=== PATIENT | female | born 1980 | race Caucasian/White ===

== ENCOUNTER 2017-09-11 18:45 | Observation (INO) | payer SELFPAY ==
[~2017-09-11] VITALS: Ht 162.6 cm; Wt 84.8 kg
[~2017-09-11 18:45] MED LIST: CEPH250C16 PO; IBUP-974 PO; PREN-385 PO
[2017-09-11 20:00] VITALS: BP 100/56
== END 2017-09-11 21:40 | disposition home or self-care (01) ==
LOC: MLD 18:45
PROVIDERS: ADMIT Obstetrics & Gynecology; ATTEND Obstetrics & Gynecology
DX: O26.892 Other specified pregnancy related conditions, second trimester (principal); R10.9 Unspecified abdominal pain; Z3A.23 23 weeks gestation of pregnancy
CPT/HCPCS: 76805; 81000; G0378; Q0092

== ENCOUNTER 2017-09-11 22:34 | Emergency (ER) | payer SELFPAY ==
[~2017-09-11] VITALS: Ht 152.4 cm; Wt 83.0 kg
[2017-09-11 22:41] VITALS: BP 105/70
--- NOTE | 2017-09-11 22:46 | NUR ---
TO LOBBY, A/W STEFFANIE DUARTE ERMD NOTED
--- NOTE | 2017-09-12 01:00 | NUR ---
PT TAKEN TO BED 12
--- NOTE | 2017-09-12 01:11 | NUR ---
37Y F BIB FAMILY C/O BOTH LEGS PAIN, SINCE MONDAY, NO TRAUMA NOR INJURY , EVALUATED FROM L AND D, FHR 150 25 WEEKS, LMP MARCH. PT DENIES ANY N/V/D, SOB, CP. PT STATES LEG PAIN PREVENTS HER FROM SLEEPING THUS SHE CANNOT WORK. PT BREATHING IS UNLABORED AND EVEN. PT AAOX4.
[2017-09-12 01:31] VITALS: BP 114/76
--- NOTE | 2017-09-12 01:31 | NUR ---
Patient discharged with v/s stable BY ER MD DR PEGUERO. Written and verbal after care instructions given and explained BY DR PEGUERO. Patient alert, oriented and verbalized understanding of instructions. Ambulatory with steady gait. All questions addressed prior to discharge BY DR PEGUERO. ID band removed. Patient advised to follow up with PMD. Rx of NAPROSYN 500MG given. Patient educated on indication of medication including possible reaction and side effects. Opportunity to ask questions provided and answered BY DR PEGUERO
== END 2017-09-12 01:31 | disposition home or self-care (01) ==
LOC: MED 22:34
DX: O26.892 Other specified pregnancy related conditions, second trimester (principal); M79.662 Pain in left lower leg; M79.661 Pain in right lower leg; Z3A.25 25 weeks gestation of pregnancy; Z79.899 Other long term (current) drug therapy; Z88.8 Allergy status to other drugs, medicaments and biological substances
CPT/HCPCS: 99282

== ENCOUNTER 2019-06-23 13:32 | Emergency (ER) | payer SELFPAY ==
[~2019-06-23] VITALS: Ht 152.4 cm; Wt 81.6 kg
[~2019-06-23 13:32] MED LIST changes: -IBUP-974 PO
[2019-06-23 13:39] VITALS: BP 140/87
--- NOTE | 2019-06-23 13:45 | NUR ---
WAIT AT [facility],AAOX4
--- NOTE | 2019-06-23 14:22 | NUR ---
PATIENT PRESENTS TO ED WITH C/O LOWER ABDOMINAL PAIN X 1 WEEK. DENIES TRAUMA RECENTLY. DENIES N/V/D; LUNGS CLEAR BL; HR EVEN AND REGULAR; PT DENIES ANY FEVER, CP, SOB, OR COUGH AT THIS TIME; PATIENT STATES PAIN OF 9/10 AT THIS TIME; VSS; PATIENT POSITIONED FOR COMFORT; HOB ELEVATED; BEDRAILS UP X2; BED DOWN. ER MD MADE AWARE OF PT STATUS.
[2019-06-23] MEDS ORDERED: HYDROcodone/APAP 5/325 MG 1 TAB TAB PO ONE (15:20)
[2019-06-23] MEDS ORDERED: KETOROLAC 30 MG/ML VIAL IM ONE (15:20)
[2019-06-23 17:27] VITALS: BP 128/71
--- NOTE | 2019-06-23 17:27 | NUR ---
Patient discharged with v/s stable. Written and verbal after care instructions given and explained. Patient alert, oriented and verbalized understanding of instructions. Ambulatory with steady gait. All questions addressed prior to discharge. ID band removed. Patient advised to follow up with PMD. Rx of NORCO, MOTRIN given. Patient educated on indication of medication including possible reaction and side effects. Opportunity to ask questions provided and answered.
== END 2019-06-23 17:27 | disposition home or self-care (01) ==
LOC: MED 13:32
DX: M54.42 Lumbago with sciatica, left side (principal); M54.41 Lumbago with sciatica, right side; Z98.890 Other specified postprocedural states; Z79.2 Long term (current) use of antibiotics; Z79.899 Other long term (current) drug therapy; Z91.018 Allergy to other foods
CPT/HCPCS: 81025; 96372; 99283; J1885

== ENCOUNTER 2020-10-17 11:05 | Emergency (ER) | payer SELFPAY ==
[~2020-10-17] VITALS: Ht 152.4 cm; Wt 86.2 kg
[2020-10-17 11:08] VITALS: BP 148/94
--- NOTE | 2020-10-17 11:08 | NUR ---
PT AMBULATED TO BED 8.
--- NOTE | 2020-10-17 11:10 | NUR ---
40 YO F BIB SELF FOR C/C OF LEFT SIDED WEAKNESS AND NUMBNESS X3 DAYS AND CHEST DISCOMFORT. PT DESCRIBES A "SQUEEZING PRESSURE" IN HER CHEST THAT MAKES HER FEEL SOB THAT COMES AND GOES. DENIES N/V/D. SMILE IS SYMMETRICAL, DENIES TOLENTINO, NO SLURRED SPEECH NOTED. ASSEMBLY RIVETER STRENGTH 3+ ON R SIDE AND 2+ ON LEFT SIDE. PT STATES SHE HAS BEEN UNDER MORE STRESS THEN USUAL LATELY. DENIES COVID SYMPTOMS. PT PLACED ON ACCOUNT SERVICE ASSOCIATE/PULSE OX. BED LOCKED AND IN LOWEST POSITION. SIDE RAILS X1. MED HX: ASTHMA
--- NOTE | 2020-10-17 11:15 | NUR ---
DR. WALTERS CALLED TO BEDSIDE TO ASSESS LEFT SIDED WEAKNESS
--- NOTE | 2020-10-17 11:20 | NUR ---
Dr. Kaufman is evaluating the patient at bedside.
--- NOTE | 2020-10-17 11:42 | NUR ---
operating theatre technician at bedside.
--- NOTE | 2020-10-17 11:54 | NUR ---
PT RETURNED FROM CT VIA WHEELCHAIR
--- NOTE | 2020-10-17 11:55 | NUR ---
LAB AT BEDSIDE
[2020-10-17 12:04] LABS: BASOPHILS # (AUTO) 0.1 K/uL (0.00-0.22); BASOPHILS % (AUTO) 1.3 % (0.0-2.0); EOSINOPHILS # (AUTO) 0.1 K/uL (0-0.4); HEMATOCRIT 42.8 % (36-48); HEMOGLOBIN 14.3 g/dL (12.0-16.0); LYMPHOCYTES % (AUTO) 31.6 % (20.5-51.1); MEAN CORPUSCULAR HEMOGLOBIN 26 pg (27-31); MEAN CORPUSCULAR HGB CONC 34 g/dL (33-37); MEAN CORPUSCULAR VOLUME 77.2 fL (80-94); MONOCYTES # (AUTO) 0.3 K/uL (0.8-1.0); MONOCYTES % (AUTO) 5.1 % (1.7-9.3); NEUTROPHILS # (AUTO) 3.8 K/uL (1.8-7.7); PLATELET COUNT (AUTO) 318 K/uL (140-450); RED BLOOD CELL COUNT(AUTO) 5.54 MIL/uL (4.20-5.40); RED CELL DISTRIBUTION WIDTH 14.4 % (11.6-13.7); WHITE BLOOD COUNT (AUTO) 6.3 K/uL (4.8-10.8)
[2020-10-17 12:26] LABS: ALBUMIN 3.7 g/dL (3.4-5.0); ANION GAP 11.9 (8-16); CREATININE 0.7 mg/dL (0.6-1.3); POTASSIUM 3.9 mmol/L (3.5-5.1); THYROID STIMULATING HORMONE 1.38 uIU/mL (0.34-3.74); TOTAL BILIRUBIN 0.3 mg/dL (0.0-1.0)
[2020-10-17 13:39] VITALS: BP 120/77
--- NOTE | 2020-10-17 13:39 | NUR ---
Patient discharged with v/s stable. Written and verbal after care instructions given and explained. Patient verbalized understanding. Ambulatory with steady gait. All questions addressed prior to discharge. Advised to follow up with PMD.
== END 2020-10-17 13:39 | disposition home or self-care (01) ==
LOC: MED 11:05
DX: R20.2 Paresthesia of skin (principal); E11.9 Type 2 diabetes mellitus without complications; J45.909 Unspecified asthma, uncomplicated; Z79.899 Other long term (current) drug therapy; Z88.8 Allergy status to other drugs, medicaments and biological substances
CPT/HCPCS: 36415; 70450; 71045; 80053; 84443; 85025; 99285

== ENCOUNTER 2023-06-08 18:15 | Emergency (ER) | payer SELFPAY ==
[~2023-06-08] VITALS: Ht 152.4 cm; Wt 87.1 kg
[2023-06-08 18:39] VITALS: BP 140/90; PULSE 85; RESP 16; TEMP 97.8; O2SAT 100
[2023-06-08] MEDS ORDERED: PANT40EC PO (18:53)
[2023-06-08] MEDS ORDERED: FAMO-90 PO (18:53)
[2023-06-08 19:45] VITALS: BP 140/90; PULSE 85; RESP 16; TEMP 97.8; O2SAT 100
== END 2023-06-08 19:45 | disposition home or self-care (01) ==
LOC: MED 18:15
DX: R10.13 Epigastric pain (principal); R63.0 Anorexia; J45.909 Unspecified asthma, uncomplicated; Z79.899 Other long term (current) drug therapy; Z88.8 Allergy status to other drugs, medicaments and biological substances
CPT/HCPCS: 81025; 99282

== ENCOUNTER 2024-01-23 19:13 | Emergency (ER) | payer MEDICAID ==
[~2024-01-23] VITALS: Ht 152.4 cm; Wt 88.5 kg
[~2024-01-23 19:13] MED LIST changes: +FAMO-90 PO; +PANT40EC PO
[2024-01-23 19:41] VITALS: BP 107/74; PULSE 50; RESP 16; TEMP 98; O2SAT 99
[2024-01-23 20:33] LABS: BASOPHILS # (AUTO) 0.1 K/uL (0.00-0.22); BASOPHILS % (AUTO) 1.3 % (0.0-2.0); EOSINOPHILS # (AUTO) 0.2 K/uL (0-0.4); EOSINOPHILS % (AUTO) 1.8 % (0.0-4.0); HEMATOCRIT 40.4 % (36-48); HEMOGLOBIN 13.7 g/dL (12.0-16.0); LYMPHOCYTES # (AUTO) 3.6 K/uL (2.5-16.5); LYMPHOCYTES % (AUTO) 41.8 % (20.5-51.1); MEAN CORPUSCULAR HEMOGLOBIN 26 pg (27-31); MEAN CORPUSCULAR HGB CONC 34 g/dL (33-37); MEAN CORPUSCULAR VOLUME 75.2 fL (80-94); MONOCYTES # (AUTO) 0.6 K/uL (0.8-1.0); MONOCYTES % (AUTO) 6.8 % (1.7-9.3); NEUTROPHILS # (AUTO) 4.1 K/uL (1.8-7.7); NEUTROPHILS % (AUTO) 48.3 % (42.2-75.2); PLATELET COUNT (AUTO) 320 K/uL (140-450); RED BLOOD CELL COUNT(AUTO) 5.38 MIL/uL (4.20-5.40); RED CELL DISTRIBUTION WIDTH 15.4 % (11.6-13.7); WHITE BLOOD COUNT (AUTO) 8.6 K/uL (4.8-10.8)
[2024-01-23 20:49] LABS: ALBUMIN 3.4 g/dL (3.4-5.0); ANION GAP 10.2 (8-16); CALCIUM 8.6 mg/dL (8.5-10.1); CARBON DIOXIDE 28.8 mmol/L (21-32); CREATININE 0.8 mg/dL (0.6-1.3); TOTAL BILIRUBIN 0.2 mg/dL (0.0-1.0); TOTAL PROTEIN, SERUM 7.4 g/dL (6.4-8.2)
[2024-01-23] MEDS ORDERED: ALUMINUM HYD/MAG/SIMETHICONE 30 ML UDC ONE (22:02)
[2024-01-23] MEDS: DICYCLOMINE HCL LIQUID 20 MG, ALUMINUM HYD/MAG/SIMETHICONE 30 ML, LIDOCAINE VISCOUS 2% ... PO ONE (22:31)
[2024-01-23] MEDS: DICYCLOMINE HCL LIQUID 10 MG/5 ML UDC ONE (23:12)
[2024-01-23 23:56] VITALS: O2SAT 99
== END 2024-01-23 23:56 | disposition home or self-care (01) ==
LOC: MED 19:13
DX: R10.13 Epigastric pain (principal); R11.0 Nausea; J45.909 Unspecified asthma, uncomplicated; Z79.899 Other long term (current) drug therapy
CPT/HCPCS: 36415; 80053; 81025; 83690; 85025; 99284

== ENCOUNTER 2024-05-29 18:20 | Emergency (ER) | payer MEDICAID ==
[~2024-05-29] VITALS: Ht 152.4 cm; Wt 92.2 kg
[2024-05-29 18:33] VITALS: BP 119/73; PULSE 81; RESP 17; TEMP 98.8; O2SAT 98
[2024-05-29] MEDS: KETOROLAC 30 MG/ML VIAL IM ONE (23:06)
[2024-05-29] MEDS: diazePAM 5 MG TAB PO ONE (23:08)
[2024-05-29 23:14] LABS: APPEARANCE,URINE CLEAR (CLEAR); BILIRUBIN,URINE NEGATIVE (NEGATIVE); BLOOD, URINE 3+ (NEGATIVE); COLOR,URINE YELLOW (YELLOW); LEUKOCYTE ESTERASE ,URINE NEGATIVE (NEGATIVE); NITRITE, URINE NEGATIVE (NEGATIVE); PROTEIN,URINE NEGATIVE (NEGATIVE); UGLUCOSE NEGATIVE (NEGATIVE); UROBILINOGEN,URINE 0.2 EU/dL (0.2 - 1)
[2024-05-29 23:20] LABS: BACTERIA,URINE 10-30 (MOD) /HPF (None Seen); MUCUS,URINE 1+ /LPF (None Seen); RBC,URINE TOO NUMEROUS TO COUN /HPF (0-5); SQUAMOUS EPITHELIAL CELL,UR 0-3 (FEW) /LPF (0-3 (FEW)); WBC,URINE 0-5 /HPF (0-5)
[2024-05-30] MEDS ORDERED: LID5T TP
[2024-05-30] MEDS ORDERED: DIAZ5TAB6 PO
[2024-05-30] MEDS ORDERED: NAPR-337 PO
[2024-05-30 00:20] VITALS: BP 122/78; PULSE 79; RESP 17; TEMP 98.2; O2SAT 98
== END 2024-05-30 00:20 | disposition home or self-care (01) ==
LOC: MED 18:20
DX: M54.50 Low back pain, unspecified (principal); J45.909 Unspecified asthma, uncomplicated; Z98.890 Other specified postprocedural states; Z79.899 Other long term (current) drug therapy; Z91.018 Allergy to other foods
CPT/HCPCS: 72100; 81001; 81025; 87086; 96372; 99284; J1885